=== PATIENT | male | born 1970 | race Hispanic/Latino ===

== ENCOUNTER 2022-10-22 17:14 | Emergency (ER) | payer MEDICARE, OTHER ==
[~2022-10-22] VITALS: Ht 180.3 cm; Wt 86.2 kg
[2022-10-22 17:54] LABS: BASOPHILS % (AUTO) 0.7 % (0.0-5.0); EOSINOPHILS % (AUTO) 1.7 % (0.0-8.0); HEMATOCRIT 28.6 % (42-54); LYMPHOCYTES % (AUTO) 5.5 % (21.0-51.0); MEAN CORPUSCULAR HEMOGLOBIN 31.8 pg (27.0-33.0); MEAN CORPUSCULAR HGB CONC 32.5 g/dL (32.0-36.0); MEAN CORPUSCULAR VOLUME 97.9 fL (79-99); MONOCYTES % (AUTO) 6.7 % (3.0-13.0); NEUTROPHILS % (AUTO) 85.1 % (40.0-77.0); PLATELET COUNT (AUTO) 117 K/uL (130-400); RED BLOOD CELL COUNT(AUTO) 2.92 MIL/uL (4.50-6.20); RED CELL DISTRIBUTION WIDTH 14.5 % (11.0-15.5)
[2022-10-22 18:14] LABS: ALBUMIN 2.4 g/dL (3.5-5.0)
[2022-10-22 18:17] LABS: CREATININE 8.8 mg/dL (0.5-1.5)
[2022-10-22 18:22] VITALS: BP 147/20
[2022-10-22] MEDS ORDERED: NA ZIRCON CYCLOSIL(LOKELMA 10GM) PO ONE (18:30)
[2022-10-22] MEDS ORDERED: CALCIUM GLUC 1GM 1 GM in 0.9%NACL 100ML 100 ML IV SCH (18:30)
[2022-10-22] MEDS ORDERED: INSULIN HUMULIN R 100 UNIT/ML 3ML IV ONE (18:30)
[2022-10-22] MEDS ORDERED: SODIUM BICARB 8.4% 50ML SYRINGE IVP ONE (18:30)
[2022-10-22] MEDS ORDERED: DEXTROSE 50%-WATER 25 GM/50 ML VIAL IV ONE (18:30)
[2022-10-22] MEDS ORDERED: ALBUTEROL 0.083% 2.5 MG/3 ML INH IH SCH (18:30)
[2022-10-22] MEDS ORDERED: ACETAMINOPHEN 325 MG TAB PO ONE (18:30)
== END 2022-10-22 19:32 | disposition home or self-care (01) ==
LOC: EDH 17:14
DX: N47.1 Phimosis (principal); N48.89 Other specified disorders of penis; I12.0 Hypertensive chronic kidney disease with stage 5 chronic kidney disease or end stage renal disease; N18.6 End stage renal disease; Z99.2 Dependence on renal dialysis; Z88.0 Allergy status to penicillin; Z88.8 Allergy status to other drugs, medicaments and biological substances
CPT/HCPCS: 36415; 80053; 83605; 85025; 87040; J0610; J7070